=== PATIENT | male | born 1990 | race American Indian/Alaskan Native ===

== ENCOUNTER 2017-07-14 00:11 | Emergency (ER) | payer SELFPAY ==
[2017-07-14 00:41] VITALS: BP 145/87
[2017-07-14] MEDS ORDERED: TYLENOL ONE (04:39)
[2017-07-14] MEDS ORDERED: TYLENOL PO ONE (05:07)
== END 2017-07-14 05:05 | disposition left against medical advice (07) ==
LOC: ED 00:11
DX: R51 Headache (principal); Z53.21 Procedure and treatment not carried out due to patient leaving prior to being seen by health care provider

== ENCOUNTER 2017-09-17 01:03 | Emergency (ER) | payer BC ==
--- NOTE | 2017-09-17 01:59 | Emergency Department Report ---
ED General Adult HPI - General Stated complaint: SEIZURE Time Seen by Provider: 09/17/17 01:58 - History of Present Illness Initial comments: Patient is a 27-year-old male past medical history of penile gland tumor and seizures who presents status post seizure. Patient states that he had a seizure earlier on today. Seizure was unwitnessed. She was previously at [facility] on Wednesday where he got a CT scan which showed a penile gland tumor he was discharged from to follow-up with the neurosurgeon. He states that he was not given any seizure medicine and he usually takes 750 Keppra twice a day but he has run out of it. Patient is also complaining of a headache located in the 4 head. It is a 9 out of 10 as an achy type of pain nothing they does makes it better or worse. Patient denies having any shortness of breath or neck pain or fever. Patient does report nausea at the moment. 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 - Related Data Previous Rx's Medication Instructions Recorded Last Taken Type levETIRAcetam [Keppra TAB] 750 mg PO BID #60 tablet 09/17/17 Unknown Rx Allergies Allergy/AdvReac Type Severity Reaction Status Date / Time metoclopramide [From Reglan] AdvReac Intermediate Shortness Verified 09/17/17 02 :28 of Breath azithromycin AdvReac Hives Verified 09/17/17 02:28 cephalexin [From Keflex] AdvReac Hives Verified 09/17/17 02:29 Penicillins AdvReac Hives Verified 09/17/17 02:28 ED Review of Systems ROS: Stated complaint: SEIZURE Other details as noted in HPI Constitutional: denies: chills, fever Eyes: denies: eye pain, eye discharge, vision change ENT: denies: ear pain, throat pain Respiratory: denies: cough, shortness of breath, wheezing Cardiovascular: denies: chest pain, palpitations Endocrine: no symptoms reported Gastrointestinal: denies: abdominal pain, nausea, diarrhea Genitourinary: denies: urgency, dysuria Musculoskeletal: denies: back pain, joint swelling, arthralgia Skin: denies: rash, lesions Neurological: other (seizure ). denies: headache, weakness, paresthesias Psychiatric: denies: anxiety, depression Hematological/Lymphatic: denies: easy bleeding, easy bruising ED Past Medical Hx - Social History Smoking Status: Former Smoker Substance Use Type: None - Medications Home Medications: Home Medications Medication Instructions Recorded Confirmed Last Taken Type levETIRAcetam [Keppra TAB] 750 mg PO BID #60 tablet 09/17/17 Unknown Rx ED Physical Exam - General General appearance: alert, in no apparent distress - Head Head exam: Present: atraumatic, normocephalic - Eye Eye exam: Present: normal appearance - ENT ENT exam: Present: mucous membranes moist - Neck Neck exam: Present: normal inspection - Respiratory Respiratory exam: Present: normal lung sounds bilaterally. Absent: respiratory distress - Cardiovascular Cardiovascular Exam: Present: regular rate, normal rhythm. Absent: systolic murmur, diastolic murmur, rubs, gallop - GI/Abdominal GI/Abdominal exam: Present: soft, normal bowel sounds - Rectal Rectal exam: Present: deferred - Extremities Exam Extremities exam: Present: normal inspection - Back Exam Back exam: Present: normal inspection - Neurological Exam Neurological exam: Present: alert, oriented X3 - Psychiatric Psychiatric exam: Present: normal affect, normal mood - Skin Skin exam: Present: warm, dry, intact, normal color. Absent: rash ED Course Vital Signs 09/17/17 09/17/17 09/17/17 02:04 02:30 03:41 Temperature 98.1 F Pulse Rate 94 H 55 L Respiratory 18 18 18 Rate Blood Pressure 131/96 Blood Pressure 133/75 [Left] O2 Sat by Pulse 96 96 Oximetry ED Medical Decision Making - Lab Data Result diagrams: 09/17/17 01:45 09/17/17 01:45 Labs 09/17/17 09/17/17 01:45 01:45 WBC 11.9 H RBC 5.51 H Hgb 16.1 H Hct 47.2 H MCV 86 MCH 29 MCHC 34 RDW 13.9 Plt Count 200 Lymph # Chick Grader Add Manual Diff Complete Total Counted 100 Seg Neuts % (Manual) 60.0 Band Neutrophils % 5.0 Lymphocytes % (Manual) 31.0 Reactive Lymphs % (Man) 0 Monocytes % (Manual) 4.0 Eosinophils % (Manual) 0 Basophils % (Manual) 0 Metamyelocytes % 0 Myelocytes % 0 Promyelocytes % 0 Blast Cells % 0 Nucleated RBC % Not Reportable Seg Neutrophils # Man 7.1 Band Neutrophils # 0.6 Lymphocytes # (Manual) 3.7 Abs React Lymphs (Man) 0.0 Monocytes # (Manual) 0.5 Eosinophils # (Manual) 0.0 Basophils # (Manual) 0.0 Metamyelocytes # 0.0 Myelocytes # 0.0 Promyelocytes # 0.0 Blast Cells # 0.0 WBC Morphology Not Reportable Hypersegmented Neuts Not Reportable Hyposegmented Neuts Not Reportable Hypogranular Neuts Not Reportable Smudge Cells Not Reportable Toxic Granulation Not Reportable Toxic Vacuolation Not Reportable Dohle Bodies Not Reportable Pelger-Huet Anomaly Not Reportable Cristobal Rods Not Reportable Platelet Estimate Appears normal Clumped Platelets Not Reportable Plt Clumps, EDTA Not Reportable Large Platelets Not Reportable Giant Platelets Not Reportable Platelet Satelliting Not Reportable Plt Morphology Comment Not Reportable RBC Morphology Normal Dimorphic RBCs Not Reportable Polychromasia Not Reportable Hypochromasia Not Reportable Poikilocytosis Not Reportable Anisocytosis Not Reportable Microcytosis Not Reportable Macrocytosis Not Reportable Spherocytes Not Reportable Pappenheimer Bodies Not Reportable Sickle Cells Not Reportable Target Cells Not Reportable Tear Drop Cells Not Reportable Ovalocytes Not Reportable Helmet Cells Not Reportable [place]onnell-[place] Bodies Not Reportable [place] Rings Not Reportable [place] Cells Not Reportable Bite Cells Not Reportable Crenated Cell Not Reportable Elliptocytes Not Reportable Acanthocytes (Spur) Not Reportable Rouleaux Not Reportable Hemoglobin C Crystals Not Reportable Schistocytes Not Reportable Malaria parasites Not Reportable Beny Bodies Not Reportable Hem Pathologist Commnt No Sodium 141 Potassium 4.1 Chloride 102.0 Carbon Dioxide 22 Anion Gap 21 BUN 18 Creatinine 1.3 Estimated GFR > 60 BUN/Creatinine Ratio 14 Glucose 104 H Calcium 9.5 - Medical Decision Making Chief medical diagnosis: Epilepsy Deferential medical diagnosis: Electrolyte abnormality, anemia I will get CBC, CMP, IV Route, IV pain medication Patient refuses CT scan of he due to him having a CT scan of his head on Wednesday. Critical care attestation.: If time is entered above; I have spent that time in minutes in the direct care of this critically ill patient, excluding procedure time. ED Disposition Clinical Impression: Seizure, Tension headache Disposition: DC- TO HOME OR SELFCARE Is pt being admited?: No Does the pt Need Aspirin: No Condition: Stable Instructions: Epilepsy (ED) Prescriptions: levETIRAcetam [Keppra TAB] 750 mg PO BID #60 tablet Referrals: PRIMARY CARE, [Primary Care Provider] - 3-5 Days REBECCA WHITTINGTON MD [Staff Physician] - 3-5 Days RICARDO PAEZ MD [Staff] - 3-5 Days Forms: Work/School Release Form(ED)
[2017-09-17] MEDS ORDERED: KEPPRA 1,000 MG/NS 0.75% 100ML 1,000 MG/100 ML BAG IV ONE (02:06)
[2017-09-17] MEDS ORDERED: REGLAN IV ONE (02:07)
[2017-09-17] MEDS ORDERED: DECADRON IV ONE (02:07)
[2017-09-17] MEDS ORDERED: ZOFRAN IV ONE (02:29)
[2017-09-17] MEDS ORDERED: TORADOL IV ONE (02:30)
[2017-09-17 02:33] LABS: Hematocrit 47.2 % (35.5-45.6); Hemoglobin 16.1 gm/dl (11.8-15.2); Mean Corpuscular HGB Conc 34 % (32-34); Mean Corpuscular Hemoglobin 29 pg (28-32); Mean Corpuscular Volume 86 fl (84-94); Platelet Count 200 K/mm3 (140-440); Red Blood Count 5.51 M/mm3 (3.65-5.03); Red Cell Distribution Width 13.9 % (13.2-15.2)
[2017-09-17 02:47] LABS: BUN/Creatinine Ratio 14; Blood Urea Nitrogen 18 mg/dL (9-20); Calcium 9.5 mg/dL (8.4-10.2); Hemolysis Index 22
[2017-09-17] MEDS ORDERED: SUBLIMAZE IV ONE (03:21)
[2017-09-17] MEDS ORDERED: BENADRYL IV ONE (03:22)
[2017-09-17 03:46] VITALS: BP 133/75
[2017-09-17 04:03] LABS: Band Neutrophils # (Manual) 0.6 K/mm3; Basophils % (Manual) 0 % (0.0-1.8); Eosinophils % (Manual) 0 % (0.0-4.3); Total Cells Counted 100
[2017-09-17 04:04] LABS: RBC Morphology Normal
== END 2017-09-17 04:49 | disposition home or self-care (01) ==
LOC: ED 01:03
DX: R56.9 Unspecified convulsions (principal); G44.209 Tension-type headache, unspecified, not intractable
CPT/HCPCS: 36415; 80048; 85007; 85025; 96365; 96375; 99284; J1100; J1200; J1885; J1953; J2405; J3010; J2765